=== PATIENT | male | born 1990 | race African-American/Black ===

== ENCOUNTER 2018-05-01 01:04 | Emergency (ER) | payer MEDICAID ==
[~2018-05-01] VITALS: Ht 177.8 cm; Wt 88.5 kg
[~2018-05-01 01:04] MED LIST: ALBUTEROL2.5 MG/3 M INH
--- NOTE | 2018-05-01 01:12 | Emergency Room Report ---
History of Present Illness General Chief Complaint: Asthma Source: Patient, EMS Present Illness HPI Patient's 27-year-old male presented after increased difficulty breathing. Patient presently intermittent exacerbations of asthma. Patient had run out of his inhaler. The patient was brought in by EMS. He reports having increased cough. He denies any fever. The patient reports having prior history of prednisone use in the past but denies any exacerbations of mental health issues Allergies: Coded Allergies: No Known Allergies (Unverified , 05/01/18) Patient History Past Medical History: see triage record Reviewed Nursing Documentation: PMH: Agreed; PSxH: Agreed Nursing Documentation-PMH Hx Asthma: Yes Review of Systems All Other Systems: negative except mentioned in HPI Physical Exam Vital Signs Date Time Temp Pulse Resp B/P (MAP) Pulse Ox O2 Delivery O2 Flow Rate FiO2 05/01/18 00:58 97.9 84 20 118/69 97 Room Air Sp02 EP Interpretation: reviewed, normal General Appearance: normal inspection, well appearing, no apparent distress, alert, GCS 15, non-toxic Head: atraumatic ENT: normal ENT inspection, hearing grossly normal, normal voice Neck: normal inspection, full range of motion, supple, no bony tend Respiratory: normal inspection, no respiratory distress, no retraction, wheezing Cardiovascular #1: regular rate, rhythm, no edema Gastrointestinal: normal inspection, normal bowel sounds, non tender, soft, no guarding, no hernia Genitourinary: no CVA tenderness Musculoskeletal: normal inspection, back normal, normal range of motion Neurologic: normal inspection, alert, oriented x3, responsive, president and chief commercial officer III-XII nml as tested, speech normal Psychiatric: normal inspection, judgement/insight normal, mood/affect normal Skin: normal inspection, normal color, no rash Medical Decision Making Diagnostic Impression: Primary Impression: Asthma attack ER Course The patient presented for cough and difficulty breathing. Difficult differential diagnosis included bronchitis, pneumonia, asthma, foreign body, pertussis among others. The patient was given breathing treatments with with improvement in respiratory status. Patient is given oral steroids. A repeat exam showed diminished wheezing. Patient was advised followup with primary care physician for reevaluation one to 2 days. Patient was to return for increased productive cough, hemoptysis, increased difficulty breathing or other concerns EKG Diagnostic Results Rate: normal - 83 Rhythm: NSR ST Segments: no acute changes Last Vital Signs Date Time Temp Pulse Resp B/P (MAP) Pulse Ox O2 Delivery O2 Flow Rate FiO2 05/01/18 00:58 97.9 84 20 118/69 97 Room Air Status: improved Disposition: HOME, SELF-CARE Condition: Stable Scripts Albuterol Sulfate* (ALBUTEROL SULFATE MDI*) 8.5 Gm Hfa.aer.ad 2 PUFF INH Q4H PRN for cough/wheezing, #1 EA 0 Refills Prov: Nicholas Gallegos MD 05/01/18 Prednisone* (PREDNISONE*) 20 Mg Tablet 40 MG ORAL DAILY, #10 TAB Prov: Nicholas Gallegos MD 05/01/18 Nicholas Gallegos MD May 01, 2018 01:12
[2018-05-01] MEDS ORDERED: Albuterol/Ipratropium 3ml neb HHN ONE (01:15)
[2018-05-01 01:16] VITALS: BP 118/69
[2018-05-01] MEDS ORDERED: PREDNISONE20 MG ORAL (02:04)
[2018-05-01] MEDS ORDERED: ALBUTEROL SULF8.5 GM INH (02:04)
[2018-05-01 02:26] VITALS: BP 125/79
[2018-05-01 02:29] VITALS: BP 125/79
== END 2018-05-01 02:30 | disposition home or self-care (01) ==
LOC: EDBD 01:04 → EMR 01:30
DX: J45.909 Unspecified asthma, uncomplicated (principal)
CPT/HCPCS: 94640; 94664; 99284; J7512; J7620